=== PATIENT | male | born 1990 ===

== ENCOUNTER 2023-02-05 10:02 | Outpatient (REF) | payer OTHER, MEDICAID, SELFPAY ==
[2023-02-05 10:35] LABS: Appearance Urine Clear; Color Urine Yellow; Glucose Urine UA Negative (Negative); Leukocyte Esterase Urine Negative (Negative); Nitrite Urine Negative (Negative); Urine Blood Negative (Negative); Urine Ketones Negative (Negative); Urine Protein Negative (Neg-Trace)
[2023-02-05 11:04] LABS: Estimated Average Glucose 103 mg/dL; Hemoglobin A1C 123.0305 umol/L; Hemoglobin A1c % 5.2 %
[2023-02-05 11:36] LABS: Creatinine Urine 178.87 mg/dL; Microalbum/Creatinine Ratio Ur 3.3 ug/mg cr
[2023-02-05 11:48] LABS: Alanine Aminotransferase 37 U/L (0-40); Alkaline Phosphatase 68 U/L (39-117); Anion Gap 12 (12-20); Aspartate Amino Transferase 30 U/L (5-37); Bilirubin Total 0.5 mg/dL (0.0-1.0); Blood Urea Nitrogen 13 mg/dL (9-16); Calcium 9.2 mg/dL (8.4-10.2); Carbon Dioxide 27 mmol/L (22-29); Chloride 108 mmol/L (96-108); Cholesterol 142 mg/dL; Estimated Glomerular Filt Rate > 60; Glucose Fasting 97 mg/dL (60-99); HDL Cholesterol 38 mg/dL; LDL Cholesterol Calculated 90 mg/dl; Potassium 4.5 mmol/L (3.3-5.1); Sodium 142 mmol/L (135-145); TSH reflex Free T4 1.55 uIU/mL (0.32-4.0); Total Protein 6.7 g/dL (6.5-8.0); Triglycerides 71 mg/dL
[2023-02-05 12:15] LABS: CT PCR NOT DETECTED (Not Detect.); NG PCR NOT DETECTED (Not Detect.)
[2023-02-07 11:51] LABS: HBS Num1 20.92 mIU/mL (0-7.99); HBc Num1 0.14 S/CO (0.00-0.79); HBsAGNum1 0.44 S/CO (0.00-0.99); HIV AB/AG Nonreactive (Nonreactive); HIV Num 1 0.06 S/CO (0.00-0.99); Hepatitis B Core Antibody Nonreactive (Nonreactive); Hepatitis B Surface Antigen Negative (Negative); ~HepC Num1 0.13 S/CO (0.00-0.79); ~Hepatitis B Surface Antibody REACTIVE (Nonreactive); ~Hepatitis C Antibody Nonreactive (Nonreactive)
[2023-02-07 11:52] LABS: Syphilis Screen Nonreactive (Nonreactive)
[2023-02-10 23:23] LABS: Testosterone, Free 5.2 pg/mL (35.0-155.0); Testosterone, Total 61 ng/dL (250-1100)
== END 2023-02-05 10:03 | disposition home or self-care (01) ==
LOC: HO.LAB 10:02
PROVIDERS: PCP Family Medicine; Visit Provider Family Medicine
DX: Z00.00 Encounter for general adult medical examination without abnormal findings (principal); Z11.4 Encounter for screening for human immunodeficiency virus [HIV]; Z20.2 Contact with and (suspected) exposure to infections with a predominantly sexual mode of transmission; I10 Essential (primary) hypertension; E66.01 Morbid (severe) obesity due to excess calories; R68.82 Decreased libido
CPT/HCPCS: 0353U; 80053; 80061; 81003; 82043; 83036; 84402; 84403; 84443; 86704; 86706; 86780; 86803; 87340; 87389

== ENCOUNTER → 2023-03-28 14:51 | Outpatient (BNVA) | payer OTHER, MEDICAID, SELFPAY | PROVIDERS: PCP Family Medicine; Visit Provider Nurse Practitioner Family ==

== ENCOUNTER 2023-04-02 08:42 | Outpatient (REF) | payer OTHER, MEDICAID, SELFPAY ==
[2023-04-03 21:14] LABS: Follicle Stimulating Hormone 3.1 mIU/mL (1.6-8.0); Lutenizing Hormone 1.9 mIU/mL (1.5-9.3); Prolactin 238.9 ng/mL (2.0-18.0)
[2023-04-07 16:17] LABS: Testosterone, Free 13.1 pg/mL (35.0-155.0); Testosterone, Total 146 ng/dL (250-1100)
[2023-04-11 01:28] LABS: Estradiol Ultra Sensitive 17 pg/mL (< OR = 29)
== END 2023-04-02 08:43 | disposition home or self-care (01) ==
LOC: HO.LAB 08:42
PROVIDERS: PCP Family Medicine; Visit Provider Nurse Practitioner Family
DX: E29.1 Testicular hypofunction (principal); N52.9 Male erectile dysfunction, unspecified; R68.82 Decreased libido; R79.89 Other specified abnormal findings of blood chemistry
CPT/HCPCS: 36415; 82670; 83001; 83002; 84146; 84402; 84403

== ENCOUNTER → 2023-04-11 15:41 | Outpatient (BNVA) | payer OTHER, MEDICAID, SELFPAY | PROVIDERS: PCP Family Medicine; Visit Provider Nurse Practitioner Family ==

== ENCOUNTER 2023-05-26 14:22 | Outpatient (REF) | payer OTHER, MEDICAID, SELFPAY | END 2023-05-26 14:23 | disposition home or self-care (01) | LOC: HO.MRI 14:22 | PROVIDERS: PCP Family Medicine; Visit Provider Nurse Practitioner Family | DX: R79.89 Other specified abnormal findings of blood chemistry (principal) | CPT/HCPCS: 70553; A9585 ==

== ENCOUNTER 2023-06-02 15:24 | Outpatient (AMB) | payer OTHER, MEDICAID, SELFPAY ==
--- NOTE | 2023-06-02 15:26 | A.OFFVIS_ITS ---
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 Crowley. He presents to the office today for a follow up. Patient has a PMH of sleep apne a complaint with CPAP machine and obesity. Of note, patient was previously seen approximately 6-7 weeks ago at which time a MRI of the brain was ordered for an elevated prolactin level. These results were reviewed with the patient today. Heterogeneously enhancing lesion centered in the left aspect of the pituitary gland measuring up to 1.5 cm most compatible with a pituitary macroadenoma. No acute intracranial abnormality. Estradiol--17 FSH--3.1 LH--1.9 Prolactin--239 Total testosterone--146 Free Testosterone--13.1 Referral to Endocrinology in place and patient has an appointment scheduled with Dr. Last for Friday 06/15 for further assessment and evaluation. He otherwise denies any issues or concerns at this time. He continues with healthy eating habits, exercising, and losing weight. Patient reports since dieting in January he has lost over 35 lb. In office urinalysis results reviewed with the patient today. [facility] Medical History Herniation of intervertebral disc between L4 and L5 Surgical History Hx of tonsillectomy Family History Father No problems noted. Mother No problems noted. Social History Patient Tobacco Use Status: Never used Tobacco e-Cigarette/Vaping Use: Never Used Second Hand Smoke Exposure: No service: No Current occupational status: employed Current occupational exposures/hazards: No Cognitive needs: No Hearing needs: No Vision needs: No Review of Systems Const All systems reviewed & are unremarkable except as noted in HPI and below Reports no additional complaints Eyes Reports no additional complaints ENT Reports as per HPI Card Reports no additional complaints Resp Reports as per HPI GI Reports no additional complaints Reports as per HPI Musc Reports no additional complaints Neuro Reports no additional complaints Psych Reports no additional complaints Endo Reports no additional complaints Mark/Lymph Reports no additional complaints Aller/Immun Reports no additional complaints Physical Exam Const General: cooperative, healthy appearing, comfortable, no acute distress, well developed, alert and awake Nutritional Appearance: overweight Orientation/consciousness: patient oriented x3 Limitations: no limitations HEENT Head: Yes normal to inspection, Yes normocephalic and Yes atraumatic Ears: hearing grossly normal bilaterally Eyes General: appearance normal, both eyes and all related structures Neck Neck: Yes normal visual inspection and Yes trachea midline Chest Chest palpation & inspection: normal inspection of the chest Resp Effort & Inspection: normal respiratory effort and able to speak in complete sentences Cardio Rate: regular rate GI Inspection: Yes normal to inspection General: Yes no CVA tenderness Back/Spine/Pelvis Back: no CVA tenderness Skin General skin exam: no rashes or lesions noted Neuro General: patient oriented x3 Extrem General: Yes normal to inspection Psych Appearance: grossly normal and well kempt Mental Status: mental status grossly normal Speech and movement: Normal speech and movement present and Clear speech present Affect: normal affect Attitude: cooperative Thought process: Normal thought process present Thought content: Normal thought content present Insight: Good insight present (Psych) Judgement: Good judgement present (Psych) Results AMB Urinalysis, Automated UA Leukoctes 0 Braeden/uL Last Edit by [employer] on 06/02/23 15:45 UA Nitrite Negative Last Edit by [employer] on 06/02/23 15:45 UA Urobilinogen 0.2 mg/dL Last Edit by [employer] on 06/02/23 15:45 UA Protein 0 mg/dL Last Edit by [employer] on 06/02/23 15:45 UA pH 8.0 Last Edit by [employer] on 06/02/23 15:45 UA Blood 0 Que/uL Last Edit by [employer] on 06/02/23 15:45 UA Specific [place] 1.010 Last Edit by [employer] on 06/02/23 15:45 UA Ketone Negative Last Edit by Nely Chow on 06/02/23 15:45 UA Bilirubin 0 mg/dL Last Edit by Nely Chow on 06/02/23 15:45 UA Glucose 0 mg/dL Last Edit by Nely Chow on 06/02/23 15:45 Results Reviewed Results Reviewed: Laboratory Last Values Urine pH (Auto) 8.0 06/02/23 15:36 Specific [place] (Auto) 1.010 06/02/23 15:36 Urine Protein (Auto) 0 mg/dL 06/02/23 15:36 Glucose (UA)(Auto) 0 mg/dL 06/02/23 15:36 Urine Ketones (Auto) Negative 06/02/23 15:36 Urine Blood (Auto) 0 Que/uL 06/02/23 15:36 Urine Nitrite (Auto) Negative 06/02/23 15:36 Urine Bilirubin (Auto) 0 mg/dL 06/02/23 15:36 Urine Urobilinogen (Auto) 0.2 mg/dL 06/02/23 15:36 Leukocyte Esterase (Auto) 0 Braeden/uL 06/02/23 15:36 Ordering Physician: Mariely Florence Date of Service: 05/26/23 Procedure(s): MR head/brain wo/w con Accession Number(s): [id number] cc: Mariely Florence~ EXAMINATION: MR BRAIN WITHOUT AND WITH CONTRAST CLINICAL INFORMATION: Elevated prolactin levels. COMPARISON: None available. TECHNIQUE: Multiplanar, multisequence imaging of the brain was performed before and after the intravenous administration of 5 mL of Gadavist. FINDINGS: There is a heterogeneously enhancing lesion centered in the left aspect of the pituitary gland measuring 1.1 x 1.5 x 1.3 cm. The lesion mildly bulges into left aspect of the cavernous sinus. The normal pituitary gland is positioned in the right aspect of the sella and the infundibulum inserts to the right of midline. There is no compression of the optic apparatus. There is no acute infarction, hemorrhage, or extra-axial fluid collection. The ventricles are normal in size without hydrocephalus. No abnormal parenchymal enhancement is seen. The extracranial structures are within normal limits. The major arterial flow voids are preserved at the skull base. IMPRESSION: Heterogeneously enhancing lesion centered in the left aspect of the pituitary gland measuring up to 1.5 cm most compatible with a pituitary macroadenoma. No acute intracranial abnormality. 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 Recent MRI imaging results reviewed with the patient today; as noted above. Follow up with Dr. Last as planned and discussed Patient will call for an appointment Orders: Orders AMB Urinalysis Automated Today Z13.9 - Encounter for screening, unspecified Patient Instructions: The patient had an opportunity to ask questions regarding the treatment plan. All questions were answered. Physical exam, labs, and imaging were discussed and reviewed in detail. As well as risks, benefits, and discussion of treatment choices. No major barriers to understanding were identified. The patient expressed understanding and agreement with the above treatment plan. The patient was made aware they should contact our office by phone for worsening of their current condition, the appearance of new symptoms, or with any questions or concerns. Compliance is encouraged with any medications and follow up testing that is ordered. It is a privilege to be allowed the opportunity to participate in? your urological care.? Again, if you have any questions or concerns If you have any questions or concerns please do not hesitate to contact me. The office is [phone]. This note is constructed using voice recognition software. While every effort has been made to ensure accuracy flexible babysitter errors may have been included. Yours sincerely, ANNA Baez Coding Level of Care Code Est Pt Level 3 (48546) Diagnoses Elevated procalcitonin R79.89 Pituitary macroadenoma D35.2 Low libido R68.82
== END 2023-06-02 16:14 | disposition home or self-care (01) ==
PROVIDERS: Visit Provider Nurse Practitioner Family
DX: R79.89 Other specified abnormal findings of blood chemistry (principal); D35.2 Benign neoplasm of pituitary gland; R68.82 Decreased libido
CPT/HCPCS: 99213

== ENCOUNTER → 2023-06-02 15:24 | Outpatient (BNVA) | payer OTHER, MEDICAID, SELFPAY | PROVIDERS: Visit Provider Nurse Practitioner Family ==

== ENCOUNTER 2023-06-15 14:42 | Outpatient (AMB) | payer OTHER, MEDICAID, SELFPAY ==
[2023-06-15 14:44] VITALS: BP 112/74; PULSE 78; BMI 44.8
--- NOTE | 2023-06-15 14:44 | MHC.OFFVIS ---
Intake Vital Signs 06/15/23 14:44 Height 5 ft 10 in Weight 312 lb 6.32 oz BMI 44.8 BP 112/74 Blood Pressure Location Rt brachial Position Sitting Pulse 78 Pulse Source Pulse Oximeter Intake Visit Reasons: Elevated Prolactin level Intake Note: New patient present today for Elevated Prolactin level. 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 First found out couple of mos ago. Patient was found to have a low testosterone level and secondary hypogonadism. Has loss of libido He c/o galactorrhea. He denies any headache or loss of vision. He denies any symptoms of acromegaly but has sleep apnea . He denies use of neuroleptics medications. There is no history of thyroid disease or liver kidney disease. Mom has thyroid problems but no pituitary problems Has 2 children 14 and 6 and no problems with fertility. No marijuana use. MRI the pituitary on 05/26/2023 FINDINGS: There is a heterogeneously enhancing lesion centered in the left aspect of the pituitary gland measuring 1.1 x 1.5 x 1.3 cm. The lesion mildly bulges into left aspect of the cavernous sinus. The normal pituitary gland is positioned in the right aspect of the sella and the infundibulum inserts to the right of midline. There is no compression of the optic apparatus. There is no acute infarction, hemorrhage, or extra-axial fluid collection. The ventricles are normal in size without hydrocephalus. No abnormal parenchymal enhancement is seen. The extracranial structures are within normal limits. The major arterial flow voids are preserved at the skull base. MR/MR head/brain wo/w con IMPRESSION: Heterogeneously enhancing lesion centered in the left aspect of the pituitary gland measuring up to 1.5 cm most compatible with a pituitary macroadenoma. No acute intracranial abnormality. [facility] Medical History (Updated 06/15/23 @ 14:46 by DALILA Husain) Herniation of intervertebral disc between L4 and L5 Surgical History History of herniated intervertebral disc Hx of tonsillectomy Family History Father No problems noted. Mother No problems noted. Social History Patient Tobacco Use Status: Never used Tobacco e-Cigarette/Vaping Use: Never Used Second Hand Smoke Exposure: No service: No Current occupational status: employed Current occupational exposures/hazards: No Cognitive needs: No Hearing needs: No Vision needs: No Physical Exam Vital Signs: Last Vital Signs Pulse 78 06/15/23 14:44 BP 112/74 06/15/23 14:44 BMI result Body Mass Index 44.8 Const Other: There is no visual field loss by gross confrontation. There are no acromegalic features. Examination of the chest reveals the presence of breast tissue bilaterally. There is clear discharge expressed from both nipples per. Thyroid gland is normal size weighs about 15 g. No thyroid nodules. Lungs are clear to auscultation . Abdominal exam is benign. Examination of the genitalia reveals testes to be of diminished size and soft consistency. 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 Will need to rule out co secretion of growth hormone and ACTH.. He has normal kidney and liver function. Appears to be clinically and biochemically euthyroid The plan is to check an IGF-1 as well as 24 hour urine for free cortisol and creatinine. Assuming above is normal, would consider use of dopamine agonist like cabergoline 0.25 mg twice a week. Will go over side effects of cabergoline with patient including but not limited to nausea, dizziness, psychosis and compulsive behavior Orders: Orders IGF-1 (Somatomedin C) Today D35.2 - Benign neoplasm of pituitary gland Cortisol, Free 24Hr Urine Today D35.2 - Benign neoplasm of pituitary gland Creatinine, 24 Hr Group Today D35.2 - Benign neoplasm of pituitary gland Coding Level of Care Code New Pt Level 4 (41590) Diagnoses Pituitary macroadenoma D35.2
== END 2023-06-15 15:25 | disposition home or self-care (01) ==
PROVIDERS: PCP Family Medicine; Visit Provider Internal Medicine Endocrinology, Diabetes & Metabolism
DX: D35.2 Benign neoplasm of pituitary gland (principal)
CPT/HCPCS: 99204

== ENCOUNTER → 2023-06-15 14:42 | Outpatient (BNVA) | payer OTHER, MEDICAID, SELFPAY | PROVIDERS: PCP Family Medicine; Visit Provider Internal Medicine Endocrinology, Diabetes & Metabolism ==

== ENCOUNTER 2023-06-18 07:56 | Outpatient (REF) | payer OTHER, MEDICAID, SELFPAY ==
[2023-06-18 09:01] LABS: Estimated Average Glucose 97 mg/dL
[2023-06-18 09:23] LABS: Anion Gap 15 (12-20); Blood Urea Nitrogen 14 mg/dL (9-16); Calcium 9.4 mg/dL (8.4-10.2); Carbon Dioxide 22 mmol/L (22-29); Chloride 108 mmol/L (96-108); Cholesterol 147 mg/dL; Estimated Glomerular Filt Rate > 60; Glucose Fasting 105 mg/dL (60-99); HDL Cholesterol 44 mg/dL; LDL Cholesterol Calculated 91 mg/dl; Potassium 4.2 mmol/L (3.3-5.1); Sodium 141 mmol/L (135-145); Triglycerides 61 mg/dL
[2023-06-23 13:48] LABS: IGF-1 (Somatomedin C) 97 ng/mL (53-331); IGF-1 Z Score (Male) -0.9 SD (-2.0 - +2.0)
== END 2023-06-18 07:57 | disposition home or self-care (01) ==
LOC: HO.LAB 07:56
PROVIDERS: Family Medicine; Visit Provider Internal Medicine Endocrinology, Diabetes & Metabolism
DX: Z00.00 Encounter for general adult medical examination without abnormal findings (principal); D35.2 Benign neoplasm of pituitary gland; E78.6 Lipoprotein deficiency; R73.01 Impaired fasting glucose
CPT/HCPCS: 36415; 80048; 80061; 83036; 84305

== ENCOUNTER 2023-06-19 | Outpatient (REF) | payer OTHER, MEDICAID, SELFPAY ==
[2023-06-20 16:43] LABS: Creatinine, 24Hr Urine 2.1 G/Day (1.0-2.0); Total Volume 24 Hour Urine 2150 mL
[2023-06-27 12:13] LABS: Cortisol Free, 24 Hr Urine 41.7 mcg/24 h (4.0-50.0); Creatinine, 24 Hr Urine 2.15 g/24 h (0.50-2.15); Total Volume, 24 Hr Urine 2150 mL
== END 2023-06-19 00:01 | disposition home or self-care (01) ==
LOC: HO.LNP
PROVIDERS: Visit Provider Internal Medicine Endocrinology, Diabetes & Metabolism
DX: D35.2 Benign neoplasm of pituitary gland (principal)
CPT/HCPCS: 82530; 82570

== ENCOUNTER 2023-09-10 09:38 | Outpatient (REF) | payer OTHER, SELFPAY ==
[2023-09-10 10:57] LABS: Alanine Aminotransferase 41 U/L (0-40); Alkaline Phosphatase 83 U/L (39-117); Aspartate Amino Transferase 31 U/L (5-37); Bilirubin Direct 0.2 mg/dL (0.0-0.5); Bilirubin Total 0.5 mg/dL (0.0-1.0); Total Protein 7.4 g/dL (6.5-8.0)
[2023-09-12 04:29] LABS: Prolactin 65.7 ng/mL (2.0-18.0)
== END 2023-09-10 09:39 | disposition home or self-care (01) ==
LOC: HO.LAB 09:38
PROVIDERS: PCP Family Medicine; Visit Provider Internal Medicine Endocrinology, Diabetes & Metabolism
DX: D35.2 Benign neoplasm of pituitary gland (principal)
CPT/HCPCS: 36415; 80076; 84146

== ENCOUNTER 2023-10-29 07:54 | Outpatient (REF) | payer OTHER, SELFPAY ==
[2023-10-29 09:20] LABS: Alanine Aminotransferase 28 U/L (0-40); Alkaline Phosphatase 65 U/L (39-117); Aspartate Amino Transferase 32 U/L (5-37); Bilirubin Direct 0.1 mg/dL (0.0-0.5); Bilirubin Total 0.4 mg/dL (0.0-1.0); Total Protein 7.3 g/dL (6.5-8.0)
[2023-10-30 06:03] LABS: Prolactin 31.2 ng/mL (2.0-18.0)
== END 2023-10-29 07:55 | disposition home or self-care (01) ==
LOC: HO.LAB 07:54
PROVIDERS: Visit Provider Internal Medicine Endocrinology, Diabetes & Metabolism
DX: D35.2 Benign neoplasm of pituitary gland (principal)
CPT/HCPCS: 36415; 80076; 84146

== ENCOUNTER 2023-11-07 16:14 | Outpatient (AMB) | payer OTHER, SELFPAY ==
[2023-11-07 16:15] VITALS: BP 102/58; PULSE 91; BMI 46.7
--- NOTE | 2023-11-07 16:15 | MHC.OFFVIS ---
Intake Vital Signs 11/07/23 16:15 Height 5 ft 10 in Weight 325 lb 6.436 oz BMI 46.7 BP 102/58 L Blood Pressure Location Rt brachial Position Sitting Pulse 91 Pulse Source Pulse Oximeter Intake Visit Reasons: Elevated Prolactin level/CONFIRMED Intake Note: Patient presents for Elevated Porlactin levels follow up visit. It Quality Assurance Analyst Required: No Accompanied by: Self / Same As Patient Allergies No Known Allergies Allergy (Verified 11/07/23 16:17) Medication List - Last Reconciled 11/07/23 by Guero Last MD cabergoline 0.5 mg PO 2XW HPI HPI Comments History of Present Illness Details Is a 32-year-old male sent endocrinology for evaluation of hyperprolactinemia. First found out couple of mos ago. Patient was found to have a low testosterone level and secondary hypogonadism. Has loss of libido He c/o galactorrhea. He denies any headache or loss of vision. He denies any symptoms of acromegaly but has sleep apnea . He denies use of neuroleptics medications. There is no history of thyroid disease or liver kidney disease. Mom has thyroid problems but no pituitary problems Has 2 children 14 and 6 and no problems with fertility. No marijuana use. MRI the pituitary on 05/26/2023 FINDINGS: There is a heterogeneously enhancing lesion centered in the left aspect of the pituitary gland measuring 1.1 x 1.5 x 1.3 cm. The lesion mildly bulges into left aspect of the cavernous sinus. The normal pituitary gland is positioned in the right aspect of the sella and the infundibulum inserts to the right of midline. There is no compression of the optic apparatus. There is no acute infarction, hemorrhage, or extra-axial fluid collection. The ventricles are normal in size without hydrocephalus. No abnormal parenchymal enhancement is seen. The extracranial structures are within normal limits. The major arterial flow voids are preserved at the skull base. MR/MR head/brain wo/w con IMPRESSION: Heterogeneously enhancing lesion centered in the left aspect of the pituitary gland measuring up to 1.5 cm most compatible with a pituitary macroadenoma. No acute intracranial abnormality. Workup for [place]'s and acromegaly were negative. Patient is currently on cabergoline 0.5 mg twice a week dose just increased from 0.25 mg twice wk. There is no increase in headaches or loss of vision.Does c/o increase in libido [facility] Medical History (Updated 06/15/23 @ 14:46 by DALILA Husain) Herniation of intervertebral disc between L4 and L5 Surgical History History of herniated intervertebral disc Hx of tonsillectomy Family History Father No problems noted. Mother No problems noted. Social History Patient Tobacco Use Status: Never used Tobacco e-Cigarette/Vaping Use: Never Used Second Hand Smoke Exposure: No service: No Current occupational status: employed Current occupational exposures/hazards: No Cognitive needs: No Hearing needs: No Vision needs: No Physical Exam Vital Signs: BMI result Body Mass Index 46.7 Const Other: There is no visual field loss by gross confrontation. There are no acromegalic features. 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 Currently on cabergoline 0.5 mg twice a week The plan is to recheck prolactin, liver panel in about 6 weeks. Would also consider repeating the MRI the pituitary and about 1-2 months time. Orders: Orders MR head/brain wo/w con 2 Months D35.2 - Benign neoplasm of pituitary gland Prolactin 6 Weeks D35.2 - Benign neoplasm of pituitary gland Liver Panel 6 Weeks D35.2 - Benign neoplasm of pituitary gland Coding Level of Care Code Est Pt Level 3 (23446) Diagnoses Pituitary macroadenoma D35.2
== END 2023-11-07 16:25 | disposition home or self-care (01) ==
PROVIDERS: PCP Family Medicine; Visit Provider Internal Medicine Endocrinology, Diabetes & Metabolism
DX: D35.2 Benign neoplasm of pituitary gland (principal)
CPT/HCPCS: 99213

== ENCOUNTER → 2023-11-07 16:14 | Outpatient (BNVA) | payer OTHER, SELFPAY | PROVIDERS: PCP Family Medicine; Visit Provider Internal Medicine Endocrinology, Diabetes & Metabolism ==

== ENCOUNTER 2023-12-10 09:03 | Outpatient (REF) | payer OTHER, SELFPAY ==
[2023-12-10 10:16] LABS: Alanine Aminotransferase 23 U/L (0-40); Albumin Level 4.1 g/dL (3.5-5.0); Alkaline Phosphatase 66 U/L (39-117); Aspartate Amino Transferase 23 U/L (5-37); Bilirubin Direct 0.2 mg/dL (0.0-0.5); Bilirubin Total 0.4 mg/dL (0.0-1.0); Total Protein 7.3 g/dL (6.5-8.0)
[2023-12-12 17:29] LABS: Prolactin 12.6 ng/mL (2.0-18.0)
== END 2023-12-10 09:04 | disposition home or self-care (01) ==
LOC: HO.LAB 09:03
PROVIDERS: PCP Family Medicine; Visit Provider Internal Medicine Endocrinology, Diabetes & Metabolism
DX: D35.2 Benign neoplasm of pituitary gland (principal)
CPT/HCPCS: 36415; 80076; 84146

== ENCOUNTER 2024-02-01 15:36 | Outpatient (AMB) | payer OTHER, SELFPAY ==
[2024-02-01 15:43] VITALS: BP 102/74; PULSE 72; BMI 43.4
--- NOTE | 2024-02-01 15:43 | MHC.OFFVIS ---
Intake Vital Signs 02/01/24 15:43 Height 5 ft 10 in Weight 302 lb 7.587 oz BMI 43.4 BP 102/74 Blood Pressure Location Lt brachial Position Sitting Pulse 72 Pulse Source Pulse Oximeter Intake Visit Reasons: f/u macroprolactinoma-confirmed Intake Note: Patient present today for macroprolactinoma follow up visit. Allergies No Known Allergies Allergy (Verified 02/01/24 15:47) HPI HPI Comments History of Present Illness Details Is a 32-year-old male sent endocrinology for evaluation of hyperprolactinemia. First found out couple of mos ago. Patient was found to have a low testosterone level and secondary hypogonadism. Has loss of libido He c/o galactorrhea. He denies any headache or loss of vision. He denies any symptoms of acromegaly but has sleep apnea . He denies use of neuroleptics medications. There is no history of thyroid disease or liver kidney disease. Mom has thyroid problems but no pituitary problems Has 2 children 14 and 6 and no problems with fertility. No marijuana use. MRI the pituitary on 05/26/2023 FINDINGS: There is a heterogeneously enhancing lesion centered in the left aspect of the pituitary gland measuring 1.1 x 1.5 x 1.3 cm. The lesion mildly bulges into left aspect of the cavernous sinus. The normal pituitary gland is positioned in the right aspect of the sella and the infundibulum inserts to the right of midline. There is no compression of the optic apparatus. There is no acute infarction, hemorrhage, or extra-axial fluid collection. The ventricles are normal in size without hydrocephalus. No abnormal parenchymal enhancement is seen. The extracranial structures are within normal limits. The major arterial flow voids are preserved at the skull base. MR/MR head/brain wo/w con IMPRESSION: Heterogeneously enhancing lesion centered in the left aspect of the pituitary gland measuring up to 1.5 cm most compatible with a pituitary macroadenoma. No acute intracranial abnormality. Workup for [place]'s and acromegaly were negative. Patient is currently on cabergoline 0.5 mg twice a week dose just increased from 0.25 mg twice wk. There is no increase in headaches or loss of vision.Does c/o increase in libido [facility] Medical History (Updated 06/15/23 @ 14:46 by DALILA Husain) Herniation of intervertebral disc between L4 and L5 Surgical History History of herniated intervertebral disc Hx of tonsillectomy Family History Father No problems noted. Mother No problems noted. 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 Currently on cabergoline 0.5 mg twice a week with normalization of prolonged The plan is to continue the current treatment. Would also repeat the MRI the pituitary . Will explained to patient that anatomic imaging is also point with MRI because most likely the prolactin correlates with the size of the tumor, sometimes there is no correlation and tumor can get bigger with decreasing prolactin and this could threatened vision. He agrees do the MRI Coding Level of Care Code Est Pt Level 3 (89390) Diagnoses Pituitary macroadenoma D35.2
== END 2024-02-01 15:56 | disposition home or self-care (01) ==
PROVIDERS: PCP Family Medicine; Visit Provider Internal Medicine Endocrinology, Diabetes & Metabolism
DX: D35.2 Benign neoplasm of pituitary gland (principal)
CPT/HCPCS: 99213

== ENCOUNTER → 2024-02-01 15:36 | Outpatient (BNVA) | payer OTHER, SELFPAY | PROVIDERS: PCP Family Medicine; Visit Provider Internal Medicine Endocrinology, Diabetes & Metabolism ==

== ENCOUNTER 2024-08-06 15:54 | Outpatient (AMB) | payer OTHER, SELFPAY ==
--- NOTE | 2024-08-06 15:55 | MHC.OFFVIS ---
Vital Signs 08/06/24 15:57 Height 5 ft 10 in Weight 299 lb 13.259 oz BMI 43.0 BP 114/68 Blood Pressure Location Rt brachial Position Sitting Pulse 80 Pulse Source Pulse Oximeter Intake Visit Reasons: f/u macroprolactinoma-confirmed Intake Note: Patient present today for macroprolactinoma follow up visit. 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 First found out couple of mos ago. Patient was found to have a low testosterone level and secondary hypogonadism. Has loss of libido He c/o galactorrhea. He denies any headache or loss of vision. He denies any symptoms of acromegaly but has sleep apnea . He denies use of neuroleptics medications. There is no history of thyroid disease or liver kidney disease. Mom has thyroid problems but no pituitary problems Has 2 children 14 and 6 and no problems with fertility. No marijuana use. MRI the pituitary on 05/26/2023 FINDINGS: There is a heterogeneously enhancing lesion centered in the left aspect of the pituitary gland measuring 1.1 x 1.5 x 1.3 cm. The lesion mildly bulges into left aspect of the cavernous sinus. The normal pituitary gland is positioned in the right aspect of the sella and the infundibulum inserts to the right of midline. There is no compression of the optic apparatus. There is no acute infarction, hemorrhage, or extra-axial fluid collection. The ventricles are normal in size without hydrocephalus. No abnormal parenchymal enhancement is seen. The extracranial structures are within normal limits. The major arterial flow voids are preserved at the skull base. MR/MR head/brain wo/w con IMPRESSION: Heterogeneously enhancing lesion centered in the left aspect of the pituitary gland measuring up to 1.5 cm most compatible with a pituitary macroadenoma. No acute intracranial abnormality. Workup for [place]'s and acromegaly were negative. Patient is currently on cabergoline 0.5 mg twice a week dose but pt has not been taking . There is no increase in headaches or loss of vision.Does c/o decrease in libido . Here today to discuss repeat MRI [facility] Medical History (Updated 06/15/23 @ 14:46 by DALILA Husain) Herniation of intervertebral disc between L4 and L5 Surgical History History of herniated intervertebral disc Hx of tonsillectomy Family History Father No problems noted. Mother No problems noted. 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 Currently on cabergoline 0.5 mg twice a week with normalization of prolactin The plan is to recheck the prolactin fasting. Most likely, is elevated to not taking the cabergoline and will need toinitiate the cabergoline Would also repeat the MRI the pituitary . Will explained to patient that anatomic imaging is also point with MRI because most likely the prolactin correlates with the size of the tumor, sometimes there is no correlation and tumor can get bigger with decreasing prolactin and this could threatened vision. He agrees do the MRI but after the 1st of the year due to his high deductible Orders: Orders MR head/brain wo/w con 4 Months D35.2 - Benign neoplasm of pituitary gland Prolactin Today D35.2 - Benign neoplasm of pituitary gland Medications: Refilled cabergoline 0.5 mg PO 2XW 10 tabs 5RF Coding Level of Care Code Est Pt Level 3 (09282) Diagnoses Pituitary macroadenoma D35.2
[2024-08-06 15:57] VITALS: BP 114/68; PULSE 80; BMI 43.0
== END 2024-08-06 16:10 | disposition home or self-care (01) ==
PROVIDERS: PCP Family Medicine; Visit Provider Internal Medicine Endocrinology, Diabetes & Metabolism
DX: D35.2 Benign neoplasm of pituitary gland (principal)
CPT/HCPCS: 99213

== ENCOUNTER → 2024-08-06 15:54 | Outpatient (BNVA) | payer OTHER, SELFPAY | PROVIDERS: PCP Family Medicine; Visit Provider Internal Medicine Endocrinology, Diabetes & Metabolism ==

== ENCOUNTER 2024-08-11 09:10 | Outpatient (REF) | payer OTHER, SELFPAY ==
[2024-08-12 08:24] LABS: Prolactin 128.2 ng/mL (2.0-18.0)
== END 2024-08-11 09:11 | disposition home or self-care (01) ==
LOC: HO.LAB 09:10
PROVIDERS: Visit Provider Internal Medicine Endocrinology, Diabetes & Metabolism
DX: D35.2 Benign neoplasm of pituitary gland (principal)
CPT/HCPCS: 36415; 84146

== ENCOUNTER 2024-09-08 08:34 | Outpatient (REF) | payer OTHER, SELFPAY ==
[2024-09-10 02:34] LABS: Prolactin 24.3 ng/mL (2.0-18.0)
== END 2024-09-08 08:35 | disposition home or self-care (01) ==
LOC: HO.LAB 08:34
PROVIDERS: PCP Family Medicine; Visit Provider Internal Medicine Endocrinology, Diabetes & Metabolism
DX: D35.2 Benign neoplasm of pituitary gland (principal)
CPT/HCPCS: 36415; 84146

== ENCOUNTER → 2024-12-06 15:40 | Outpatient (BNV) | payer OTHER, SELFPAY | PROVIDERS: PCP Family Medicine; Visit Provider Specialist | DX: D35.2 Benign neoplasm of pituitary gland (principal) | CPT/HCPCS: 70553 ==

== ENCOUNTER 2024-12-06 15:45 | Outpatient (REF) | payer OTHER, SELFPAY ==
--- NOTE | ~2024-12-06 | MR_ITS ---
CLINICAL HISTORY: D35.2 - Benign neoplasm of pituitary gland MR Brain with and without gadolinium Comparison: 05/26/2023 Findings: No new restricted diffusion. No new intracranial mass or hemorrhage. The previously noted area of diminished enhancement in the left pituitary gland and degree of infundibular displacement have decreased No midline shift. No hydrocephalus. Vascular flow voids are intact. Orbital contents are unremarkable. The sinuses and mastoid air cells are clear. No focal bone lesion. IMPRESSION: Decreased size of possible pituitary micro adenoma This document has been electronically signed by: Kenneth Webb MD on 12/07/2024 08:29:42
[2024-12-06] MEDS: gadobutroL 7.5 ML VIAL IVPUSH (16:19)
== END 2024-12-06 15:46 | disposition home or self-care (01) ==
LOC: HO.MRI 15:45
PROVIDERS: PCP Family Medicine; Visit Provider Internal Medicine Endocrinology, Diabetes & Metabolism
DX: D35.2 Benign neoplasm of pituitary gland (principal)
CPT/HCPCS: 70553; A9585

== ENCOUNTER 2024-12-15 07:36 | Outpatient (REF) | payer OTHER, SELFPAY ==
[2024-12-15 08:38] LABS: Alanine Aminotransferase 24 U/L (0-40); Albumin Level 4.2 g/dL (3.5-5.0); Alkaline Phosphatase 75 U/L (39-117); Aspartate Amino Transferase 32 U/L (5-37); Bilirubin Direct 0.2 mg/dL (0.0-0.5); Bilirubin Total 0.6 mg/dL (0.0-1.0); Total Protein 7.2 g/dL (6.5-8.0)
== END 2024-12-15 07:37 | disposition home or self-care (01) ==
LOC: HO.LAB 07:36
PROVIDERS: PCP Family Medicine; Visit Provider Internal Medicine Endocrinology, Diabetes & Metabolism
DX: D35.2 Benign neoplasm of pituitary gland (principal)
CPT/HCPCS: 36415; 80076; 84146

== ENCOUNTER 2025-01-08 15:49 | Outpatient (AMB) | payer OTHER, SELFPAY ==
--- NOTE | 2025-01-08 15:55 | A.OFFVIS_ITS ---
Vital Signs 01/08/25 15:58 Height 5 ft 10 in Weight 291 lb 7.218 oz BMI 41.8 BP 112/70 Blood Pressure Location Rt brachial Position Sitting Pulse 75 Pulse Source Pulse Oximeter Pulse Oximetry (%) 97 Oxygen Delivery Method Room Air Intake Visit Reasons: f/u macroprolactinoma Intake Note: Patient present today for macroprolactinoma follow up visit. 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 First found out couple of mos ago. Patient was found to have a low testosterone level and secondary hypogonadism. Has loss of libido He c/o galactorrhea. He denies any headache or loss of vision. He denies any symptoms of acromegaly but has sleep apnea . He denies use of neuroleptics medications. There is no history of thyroid disease or liver kidney disease. Mom has thyroid problems but no pituitary problems Has 2 children 14 and 6 and no problems with fertility. No marijuana use. MRI the pituitary on 05/26/2023 FINDINGS: There is a heterogeneously enhancing lesion centered in the left aspect of the pituitary gland measuring 1.1 x 1.5 x 1.3 cm. The lesion mildly bulges into left aspect of the cavernous sinus. The normal pituitary gland is positioned in the right aspect of the sella and the infundibulum inserts to the right of midline. There is no compression of the optic apparatus. There is no acute infarction, hemorrhage, or extra-axial fluid collection. The ventricles are normal in size without hydrocephalus. No abnormal parenchymal enhancement is seen. The extracranial structures are within normal limits. The major arterial flow voids are preserved at the skull base. MR/MR head/brain wo/w con IMPRESSION: Heterogeneously enhancing lesion centered in the left aspect of the pituitary gland measuring up to 1.5 cm most compatible with a pituitary macroadenoma. No acute intracranial abnormality. Workup for [place]'s and acromegaly were negative. Patient is currently on cabergoline 1 mg on Tuesday and 0.5 ,g on There is no increase in headaches or loss of vision.Does c/o decrease in libido . prolactin normalized on this dose and MRI of the pituitary showed decrease in the size of the adenoma. No side effects on cabergoline. [facility] Medical History (Updated 06/15/23 @ 14:46 by DALILA Husain) Herniation of intervertebral disc between L4 and L5 Surgical History History of herniated intervertebral disc Hx of tonsillectomy Family History Father No problems noted. Mother No problems noted. 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 . Currently on cabergoline 1 mg and 0.5 mg Tuesday and with normalization of prolactin and decrease in the size of the macroadenoma The plan is to continue the current therapy. We will check an a.m. testosterone fasting to see if normalized. If above is normal, we will repeat MRI of the pituitary in about 7 months along with fasting prolactin. Depending upon above may consider drug holiday or continuation of cabergoline Orders: Orders Testosterone, Free/Total Today D35.2 - Benign neoplasm of pituitary gland Prolactin 7 Months D35.2 - Benign neoplasm of pituitary gland MR head/brain wo/w con 7 Months D35.2 - Benign neoplasm of pituitary gland Coding Level of Care Code Est Pt Level 3 (22241) Diagnoses Pituitary macroadenoma D35.2
[2025-01-08 15:58] VITALS: BP 112/70; PULSE 75; O2SAT 97; BMI 41.8
== END 2025-01-08 16:10 | disposition home or self-care (01) ==
PROVIDERS: PCP Family Medicine; Visit Provider Internal Medicine Endocrinology, Diabetes & Metabolism
DX: D35.2 Benign neoplasm of pituitary gland (principal)
CPT/HCPCS: 99213

== ENCOUNTER → 2025-08-02 15:38 | Outpatient (BNV) | payer OTHER, SELFPAY | PROVIDERS: PCP Family Medicine; Visit Provider Radiology Body Imaging | DX: D35.2 Benign neoplasm of pituitary gland (principal) | CPT/HCPCS: 70553 ==

== ENCOUNTER 2025-08-02 15:39 | Outpatient (REF) | payer OTHER, SELFPAY ==
--- NOTE | ~2025-08-02 | MR_ITS ---
EXAMINATION: MR BRAIN WITHOUT THEN WITH IV CONTRAST CLINICAL INFORMATION: D35.2 - Benign neoplasm of pituitary gland COMPARISON: Brain MRI on December 06, 2024 and May 26, 2023. TECHNIQUE: Multiplanar, multisequence MRI of the brain was obtained before and after the intravenous administration of 5 cc contrast gadolinium Gadavist. FINDINGS: Sella: Minimal displacement of the infundibulum to the right side is similar to November 2024. Minimally decreased enhancement of the left aspect of the pituitary gland associated with mild local decreased height is also similar to November 2024. No mass effect on the optic nerves or optic chiasm. Cavernous sinuses appear normal. Brain parenchyma: No shift of midline structures. No evidence of acute infarct, large areas of parenchymal hemorrhage, mass lesion or abnormal parenchymal enhancement. Ventricles/extra-axial spaces: No hydrocephalus. No extra-axial fluid collection. Extracranial structures: Bilateral orbital globes are unremarkable. Minimal mucosal thickening of the paranasal sinuses. Bilateral mastoid air cells are clear. Flow voids of the major arteries in the skull base are preserved. MR/MR head/brain wo/w con IMPRESSION: Overall morphology of the pituitary gland with hypoenhancement and decreased height of the left side of the pituitary gland with minimal right sided displacement of the infundibulum is similar to November 2024. Electronically signed by: Key Pham MD 08/02/2025 05:55 PM EDT
== END 2025-08-02 15:40 | disposition home or self-care (01) ==
LOC: HO.MRI 15:39
PROVIDERS: PCP Family Medicine; Visit Provider Internal Medicine Endocrinology, Diabetes & Metabolism
DX: D35.2 Benign neoplasm of pituitary gland (principal)
CPT/HCPCS: 70553; A9585

== ENCOUNTER 2025-09-05 08:43 | Outpatient (REF) | payer OTHER, SELFPAY ==
[2025-09-13 14:43] LABS: Testosterone, Free 117.1 pg/mL (35.0-155.0)
== END 2025-09-05 08:44 | disposition home or self-care (01) ==
LOC: HO.LAB 08:43
PROVIDERS: PCP Family Medicine; Visit Provider Internal Medicine Endocrinology, Diabetes & Metabolism
DX: D35.2 Benign neoplasm of pituitary gland (principal)
CPT/HCPCS: 36415; 84146; 84402; 84403

== ENCOUNTER 2025-11-07 07:52 | Outpatient (AMB) | payer OTHER, SELFPAY ==
--- NOTE | 2025-11-07 07:58 | A.OFFVIS_ITS ---
Vital Signs 11/07/25 08:00 Height 5 ft 10 in Weight 300 lb 0.786 oz BMI 43.0 BP 102/66 Blood Pressure Location Rt brachial Position Sitting Pulse 88 Pulse Source Pulse Oximeter Pulse Oximetry (%) 99 Oxygen Delivery Method Room Air Intake Visit Reasons: f/u pituitary adenoma Intake Note: Patient present today for Pituitary adenoma follow up visit. 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 First found out couple of mos ago. Patient was found to have a low testosterone level and secondary hypogonadism. Has loss of libido He c/o galactorrhea. He denies any headache or loss of vision. He denies any symptoms of acromegaly but has sleep apnea . He denies use of neuroleptics medications. There is no history of thyroid disease or liver kidney disease. Mom has thyroid problems but no pituitary problems Has 2 children 14 and 6 and no problems with fertility. No marijuana use. MRI the pituitary on 05/26/2023 FINDINGS: There is a heterogeneously enhancing lesion centered in the left aspect of the pituitary gland measuring 1.1 x 1.5 x 1.3 cm. The lesion mildly bulges into left aspect of the cavernous sinus. The normal pituitary gland is positioned in the right aspect of the sella and the infundibulum inserts to the right of midline. There is no compression of the optic apparatus. There is no acute infarction, hemorrhage, or extra-axial fluid collection. The ventricles are normal in size without hydrocephalus. No abnormal parenchymal enhancement is seen. The extracranial structures are within normal limits. The major arterial flow voids are preserved at the skull base. MR/MR head/brain wo/w con IMPRESSION: Heterogeneously enhancing lesion centered in the left aspect of the pituitary gland measuring up to 1.5 cm most compatible with a pituitary macroadenoma. No acute intracranial abnormality. Workup for [place]'s and acromegaly were negative. Patient is currently on cabergoline 1 mg on Tuesday and 0.5 ,g on There is no increase in headaches or loss of vision.Does c/o decrease in libido . prolactin normalized on this dose and MRI of the pituitary showed decrease in the size of the adenoma. No side effects on cabergoline. [facility] Medical History (Updated 06/15/23 @ 14:46 by DALILA Husain) Herniation of intervertebral disc between L4 and L5 Surgical History History of herniated intervertebral disc Hx of tonsillectomy Family History Father No problems noted. Mother No problems noted. 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 . Currently on cabergoline 1 mg and 0.5 mg Tuesday and with normalization of prolactin and decrease in the size of the macroadenoma. Prolactin has normalized and gonadal axis is normal with normal testosterone Plan is to decrease the cabergoline 0.5 mg twice a week. We will recheck prolactin fasting in 6 weeks. If prolactin remains normal may consider drug holiday at that point Orders: Orders Liver Panel Today D35.2 - Benign neoplasm of pituitary gland Prolactin 6 Weeks D35.2 - Benign neoplasm of pituitary gland Medications: Changed From cabergoline Take 1 mg (2 tablets) on Tuesday and 0.5 mg on orally 2 times a week; 90 days 24 tabs 5RF To cabergoline Take 0.5 mg (1 tablets) on Tuesday and 0.5 mg on orally 2 times a week; 24 tabs 5RF 90 days Coding Level of Care Code Est Pt Level 3 (94305) Diagnoses Pituitary macroadenoma D35.2
[2025-11-07 08:00] VITALS: BP 102/66; PULSE 88; O2SAT 99; BMI 43.0
== END 2025-11-07 08:14 | disposition home or self-care (01) ==
PROVIDERS: PCP Family Medicine; Visit Provider Internal Medicine Endocrinology, Diabetes & Metabolism
DX: D35.2 Benign neoplasm of pituitary gland (principal)
CPT/HCPCS: 99213